=== PATIENT | male | born 2000 | race Caucasian/White ===

== ENCOUNTER 2023-10-12 19:07 | Emergency (ER) | payer MEDICAID, SELFPAY ==
[2023-10-12 19:18] VITALS: BP 127/67; PULSE 68; RESP 18; TEMP 36.4; O2SAT 97
--- NOTE | 2023-10-12 19:30 | RT.EKG_ITS ---
APPROVED REPORT Exam: Resting ECG Reason for Exam: syncope Patient Location: E HR:67 bpm ECG Measurements Heart Rate 67 AXIS VT 132 P 11 QRSd 105 QRS -63 QT 394 T 33 QTc 417 Conclusion Sinus rhythm...normal P axis, V-rate 60- 99 Left anterior fascicular block...axis(240,-40), init forces inf ST elevation suggests acute pericarditis...ST >0.10mV, ant/lat/inf Physician: no stemi
[2023-10-12 19:31] VITALS: RESP 18
[2023-10-12 19:55] LABS: Abs Immature Grans 0.05 10^3/uL (0.0-0.06); Absolute Basophil Count 0.05 10^3/uL (0.0-0.2); Absolute Eosinophil Count 0.16 10^3/uL (0.0-0.7); Absolute Lymphocyte Count 2.66 10^3/uL (1.2-3.4); Absolute Monocyte Count 0.84 10^3/uL (0.1-0.8); Absolute Neutrophil Count 4.77 10^3/uL (1.2-6.7); Basophils % 0.6 %; Eosinophils % 1.9 %; HCT 44.5 % (40.0-50.0); Immature Grans % 0.6 %; Lymphocytes % 31.2 %; MCHC 33.7 % (32.0-36.0); MCV 95 fL (80-95); MPV 8.9 fL (8.0-11.0); Monocytes % 9.8 %; Neutrophils % 55.9 %; Platelet Count 252 10^3/uL (130-400); RBC 4.69 10^6/uL (4.36-5.78); RDW 12.1 % (11.8-14.1); RDW-SD 42.1 fL; WBC 8.53 10^3/uL (4.4-10.8)
[2023-10-12] MEDS: Normal Saline 1,000 ML 1000 ML IV (20:03)
[2023-10-12] MEDS: Prochlorperazine 10 MG/2 ML VIAL 5 MG IVP (20:04)
[2023-10-12 20:20] LABS: ALT 27 U/L (16-63); AST 15 U/L (15-37); Alkaline Phosphatase 91 U/L (46-116); Anion Gap 5.6 mmol/L (3-11); BUN 13 mg/dL (7-18); Bilirubin, Total 0.43 mg/dL (0.2-1.0); CO2 32.4 mmol/L (21.0-32.0); CREATININE 0.9 mg/dL (0.70-1.30); Calcium 8.9 mg/dL (8.5-10.1); Chloride 105 mmol/L (98-107); Estimated GFR 123.84 (mL/min/1.73m2); Glucose 86 mg/dL (74-106); Potassium 3.8 mmol/L (3.5-5.1); Sodium 143 mmol/L (136-145); TSH (W/Ref FT4) 1.02 uIU/mL (0.36-3.74); Troponin I < 50 ng/L (< or =60)
[2023-10-12 21:16] LABS: COVID-19 PCR Negative (Negative); Influenza A PCR Negative (Negative); Influenza B PCR Negative (Negative); RSV PCR Negative (Negative)
[2023-10-12 21:17] LABS: Source NASOPHARYNX
[2023-10-12 21:32] LABS: Bilirubin Negative (Negative); Blood Negative (Negative); Clarity Clear (Clear); Glucose Negative (Negative); Ketones Negative (Negative); Leukocyte Esterase Negative (Negative); Nitrite Negative (Negative); Specific Gravity 1.025 (1.005-1.025); Urobilinogen 0.2 mg/dL (Up to 0.2); pH 6.5 (5-8)
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
[2023-10-12 21:53] VITALS: BP 100/50; PULSE 60; RESP 16; O2SAT 99
--- NOTE | 2023-10-13 08:52 | NUR.NOTE ---
Accessed chart to reconcile EKG in [facility] with orders in [facility]. Duplicate order cancelled. Nursing Note:
== END 2023-10-12 21:38 | disposition home or self-care (01) ==
PROVIDERS: Emergency Provider Physician Assistant
DX: R42 Dizziness and giddiness (principal); R11.0 Nausea; R53.83 Other fatigue
CPT/HCPCS: 36416; 80053; 82962; 87637; 93005; 96361; 96374; 99284; 81003; 84443; 84484; 85025; 93010; 99283; J0780